=== PATIENT | male | born 1980 | race Caucasian/White ===

== ENCOUNTER 2020-10-14 13:08 | Emergency (ER) | payer OTHER ==
[~2020-10-14] VITALS: Ht 190.5 cm; Wt 111.4 kg
--- NOTE | 2020-10-14 16:42 | REP ---
INDICATION: chronic x 9 months, worsening and severe. COMPARISON: None. TECHNIQUE: Helical scanning is acquired and 4 mm axial images are re-formatted. Coronal and sagittal MPR images are generated and reviewed. FINDINGS: Lumbar vertebral body heights are preserved. Alignment is normal. there is no evidence of spondylolysis or spondylolisthesis. There is degenerative disc narrowing at the T11-12 level with minimal diffuse disc bulging. No central canal stenosis is seen. The T12-L1, L1-L2, and L2-L3 disc spaces are normal. At L3-L4, there is mild diffuse disc bulging and very slight narrowing of the disc. Canal size appears to be developmentally borderline. At L4-L5, there is minimal disc bulging. No foraminal narrowing or spinal stenosis is seen. At L5-S1, there is a broad-based left posterior focal disc protrusion which displaces the S1 root dorsally. There is discogenic spur formation in the left neural foramen producing some mild left-sided foraminal narrowing associated with the left-sided disc protrusion. The exam is otherwise unremarkable. IMPRESSION: Broad-based left posterior and left foraminal disc protrusion with associated with discogenic spurring in the left neural foramen at L5-S1. Minimal narrowing of the L3-4 and L4-5 discs with diffuse disc bulging. <Electronically signed by Romain Irvin > 10/14/20 [id number]
--- NOTE | 2020-10-14 17:15 | REP ---
INDICATION: r/o dvt LLE. COMPARISON: None. TECHNIQUE: Multiple ultrasonographic images of the deep venous structures of the left thigh were obtained from the common femoral vein to the popliteal vein along with Doppler interrogation and color flow Doppler images. FINDINGS: There is no abnormal echogenic material seen within any of the visualized deep venous structures that would suggest acute thrombosis. Coaptation is unremarkable throughout. Doppler interrogation shows an expected response to respiratory variability and augmentation. The color flow images show what appears to be a normal vascular pattern throughout. IMPRESSION: There is no ultrasonographic evidence of deep venous thrombosis involving any of the visualized deep venous structures of the left thigh, as described above. <Electronically signed by Johnnie Salinas > 10/14/20 [id number]
[2020-10-14] MEDS ORDERED: IBUP80TA PO (17:33)
[2020-10-14] MEDS ORDERED: LIDO5DIS41 TOP (17:33)
[2020-10-14] MEDS ORDERED: PRED20TA PO (17:33)
[2020-10-14 18:00] VITALS: BP 141/77
== END 2020-10-14 18:01 | disposition home or self-care (01) ==
LOC: M ED 13:08
DX: M51.17 Intervertebral disc disorders with radiculopathy, lumbosacral region (principal); M54.42 Lumbago with sciatica, left side

== ENCOUNTER 2020-11-14 07:58 | Emergency (ER) | payer OTHER ==
[~2020-11-14] VITALS: Ht 190.5 cm; Wt 120.0 kg
[~2020-11-14 07:58] MED LIST: IBUP80TA PO; LIDO5DIS41 TOP; PRED20TA PO
[2020-11-14 07:59] VITALS: BP 131/72
--- NOTE | 2020-11-14 08:18 | REP ---
INDICATION: trauma. COMPARISON: None. TECHNIQUE: Four views FINDINGS: No acute fracture or destructive osseous lesion. The mortise is intact. IMPRESSION: Within normal limits <Electronically signed by Johnnie Salinas > 11/14/20 [id number]
== END 2020-11-14 08:36 | disposition home or self-care (01) ==
LOC: M ED 07:58
DX: S93.402A Sprain of unspecified ligament of left ankle, initial encounter (principal); W10.8XXA Fall (on) (from) other stairs and steps, initial encounter; Y92.019 Unspecified place in single-family (private) house as the place of occurrence of the external cause; Y93.9 Activity, unspecified; Y99.9 Unspecified external cause status